=== PATIENT | female | born 1975 | race Caucasian/White ===

== ENCOUNTER 2016-09-01 15:02 | Observation (INO) | payer OTHER ==
[~2016-09-01] VITALS: Ht 157.5 cm; Wt 101.0 kg
[~2016-09-01 15:02] MED LIST: ADVIL200 M1 PO; BENTYL20 MG PO; Celexa PO; DIAZEPAM5 MG PO; MOBIC15 MG PO; NAPROSYN500 MG PO; NORCO 5/3251 TABLET PO; PREDNISONE20 MG PO; ULTRAM50 MG PO; VALIUM5 MG PO
[2016-09-01 15:46] LABS: HEMATOCRIT 40.4 % (36.0-46.0); MCH 29.4 PG (29.0-34.0); MCHC 33.2 G/DL (30.0-36.0); MCV 88.6 FL (83-99); MEAN PLAT.VOLUME 9.5 uM^3 (9.5-12.4); PLATELET COUNT 365 K/uL (156-360); RBC DIS.WIDTH-CV 13.2 % (11.8-14.6); RBC DIS.WIDTH-SD 41.6 % (39-53); RED BLOOD COUNT 4.56 M/uL (3.80-5.20); WHITE BLOOD COUNT 10.3 K/uL (4.1-10.2)
[2016-09-01 15:54] LABS: CHLORIDE 106 mEq/L (99-109); POTASSIUM 4.8 mEq/L (3.7-5.4); SODIUM 138 mEq/L (136-147)
[2016-09-01 15:56] LABS: GLUCOSE 88 mg/dL (70-99)
[2016-09-01 15:57] LABS: ANION GAP 9 MEQ/L (2-14)
[2016-09-01 16:00] LABS: GFR ESTIMATE (CALCULATED) > 59 mL/min/
[2016-09-01 16:01] LABS: UREA NITROGEN (BUN) 18 mg/dL (9-23)
[2016-09-01 16:18] LABS: TROP-I INTERPRETATION NEGATIVE; TROPONIN-I < 0.01 ng/mL (0.0-0.30)
[2016-09-01 17:05] LABS: EOSINOPHIL (%) 1.1 % (0-5); EOSINOPHIL COUNT 0.1 K/uL (0-0.3); IMMATURE GRANULOCYTE (%) 0.2 % (0.0-0.7); IMMATURE GRANULOCYTE COUNT 0.2 K/uL; LYMPHOCYTE COUNT 2.6 K/uL (1.0-2.8); MONOCYTE (%) 7.4 % (3-12); MONOCYTE COUNT 0.8 K/uL (0-0.8); NEUTROPHIL (%) 66.2 % (45-76); NEUTROPHIL COUNT 6.9 K/uL (1.8-6.4)
[2016-09-01 17:10] LABS: D-DIMER ELISA 0.36 mg/L FEU (< 0.57)
[2016-09-01 17:28] LABS: TOTAL BILIRUBIN 0.3 mg/dL (0.0-1.0)
[2016-09-01 17:29] LABS: ALKALINE PHOSPHATASE 91 IU/L (3-129)
[2016-09-01 17:31] LABS: DIRECT BILIRUBIN 0.1 mg/dL (0.0-0.3)
[2016-09-01 17:32] LABS: LIPASE 35 U/L (1.0-51.0)
[2016-09-01] MEDS ORDERED: CYMBALTA30 MG PO (19:09)
[2016-09-01] MEDS ORDERED: VOLTAREN50 MG PO (19:10)
[2016-09-01] MEDS ORDERED: ACID REDUCER PO (19:10)
[2016-09-01] MEDS ORDERED: VOLTAREN 1% GE100 GM TP (19:16)
[2016-09-01 22:29] LABS: TROP-I INTERPRETATION NEGATIVE; TROPONIN-I < 0.01 ng/mL (0.0-0.30)
[2016-09-01 23:06] VITALS: BP 140/75
[2016-09-02 04:19] VITALS: BP 116/63
[2016-09-02 04:39] LABS: TROP-I INTERPRETATION NEGATIVE; TROPONIN-I < 0.01 ng/mL (0.0-0.30)
[2016-09-02 07:14] LABS: MCH 29.3 PG (29.0-34.0); MCHC 32.1 G/DL (30.0-36.0); MCV 91.3 FL (83-99); MEAN PLAT.VOLUME 10.6 uM^3 (9.5-12.4); PLATELET COUNT 338 K/uL (156-360); RBC DIS.WIDTH-CV 13.4 % (11.8-14.6); RBC DIS.WIDTH-SD 44.5 % (39-53); RED BLOOD COUNT 4.16 M/uL (3.80-5.20); WHITE BLOOD COUNT 7.4 K/uL (4.1-10.2)
[2016-09-02 07:39] LABS: CHLORIDE 110 mEq/L (99-109); POTASSIUM 3.9 mEq/L (3.7-5.4); SODIUM 138 mEq/L (136-147)
[2016-09-02 07:41] LABS: GLUCOSE 92 mg/dL (70-99)
[2016-09-02 07:42] LABS: ANION GAP 8 MEQ/L (2-14)
[2016-09-02 07:45] LABS: ALKALINE PHOSPHATASE 81 IU/L (3-129); GFR ESTIMATE (CALCULATED) > 59 mL/min/
[2016-09-02 07:46] LABS: UREA NITROGEN (BUN) 16 mg/dL (9-23)
[2016-09-02 07:53] LABS: TOTAL BILIRUBIN 0.4 mg/dL (0.0-1.0)
[2016-09-02 08:35] VITALS: BP 115/64
[2016-09-02] MEDS ORDERED: PROTONIX20 MG PO (10:54)
[2016-09-02 13:06] VITALS: BP 106/59
== END 2016-09-02 12:30 | disposition home or self-care (01) ==
LOC: EME 15:02 → 5WEST 19:58 → EDOF 19:58 → 5WEST 22:57
PROVIDERS: Internal Medicine
DX: R10.13 Epigastric pain (principal); K21.9 Gastro-esophageal reflux disease without esophagitis; R07.9 Chest pain, unspecified; R11.0 Nausea; R42 Dizziness and giddiness; R06.09 Other forms of dyspnea; F32.9 Major depressive disorder, single episode, unspecified; J45.909 Unspecified asthma, uncomplicated; G43.909 Migraine, unspecified, not intractable, without status migrainosus; Z91.018 Allergy to other foods; Z88.1 Allergy status to other antibiotic agents; Z88.7 Allergy status to serum and vaccine; Z91.040 Latex allergy status
CPT/HCPCS: 71020; 76705; 80048; 80053; 80076; 83690; 84484; 85025; 85027; 85379; 93005; 99281; 99285; G0378; J1170; J1644; J2270; J2405; J7030; S0028

== ENCOUNTER 2016-12-22 16:50 | Emergency (ER) | payer OTHER ==
[~2016-12-22] VITALS: Ht 157.5 cm; Wt 97.6 kg
[~2016-12-22 16:50] MED LIST changes: +ACID REDUCER PO; +CYMBALTA30 MG PO; +PROTONIX20 MG PO; +VOLTAREN 1% GE100 GM TP; +VOLTAREN50 MG PO
[2016-12-22] MEDS ORDERED: ULTRACET1 TABLET PO (19:42)
[2016-12-22] MEDS ORDERED: VALIUM2 MG PO (19:42)
[2016-12-22] MEDS ORDERED: MOTRIN600 MG PO (19:42)
[2016-12-22 20:04] VITALS: BP 119/74
== END 2016-12-22 20:10 | disposition home or self-care (01) ==
LOC: EME 16:50
DX: S06.0X0A Concussion without loss of consciousness, initial encounter (principal); S13.4XXA Sprain of ligaments of cervical spine, initial encounter; S69.91XA Unspecified injury of right wrist, hand and finger(s), initial encounter; S80.01XA Contusion of right knee, initial encounter; W01.198A Fall on same level from slipping, tripping and stumbling with subsequent striking against other object, initial encounter; J45.909 Unspecified asthma, uncomplicated; Z91.040 Latex allergy status; Z88.1 Allergy status to other antibiotic agents; Z88.8 Allergy status to other drugs, medicaments and biological substances; Z91.018 Allergy to other foods; Z88.7 Allergy status to serum and vaccine
CPT/HCPCS: 72040; 73110; 73564; 99281; 99284

== ENCOUNTER 2017-08-01 12:43 | Emergency (ER) | payer OTHER ==
[~2017-08-01] VITALS: Ht 157.5 cm; Wt 98.2 kg
[~2017-08-01 12:43] MED LIST changes: +MOTRIN600 MG PO; +ULTRACET1 TABLET PO; +VALIUM2 MG PO
[2017-08-01 13:46] LABS: HEMATOCRIT 41.9 % (36.0-46.0); MCH 30.5 PG (29.0-34.0); MCHC 32.5 G/DL (30.0-36.0); MCV 93.9 FL (83-99); MEAN PLAT.VOLUME 9.8 uM^3 (9.5-12.4); PLATELET COUNT 395 K/uL (156-360); RBC DIS.WIDTH-CV 13.8 % (11.8-14.6); RBC DIS.WIDTH-SD 47.5 % (39-53); RED BLOOD COUNT 4.46 M/uL (3.80-5.20); WHITE BLOOD COUNT 11.3 K/uL (4.1-10.2)
[2017-08-01 13:54] LABS: D-DIMER ELISA < 150.00 ng/mLDDU (<230)
[2017-08-01 13:57] LABS: CHLORIDE 109 mEq/L (99-109); SODIUM 142 mEq/L (136-147)
[2017-08-01 13:59] LABS: GLUCOSE 73 mg/dL (70-99)
[2017-08-01 14:00] LABS: ANION GAP 9 MEQ/L (2-14)
[2017-08-01 14:03] LABS: GFR ESTIMATE (CALCULATED) > 59 mL/min/
[2017-08-01 14:04] LABS: UREA NITROGEN (BUN) 10 mg/dL (9-23)
[2017-08-01 15:58] LABS: TROP-I INTERPRETATION NEGATIVE; TROPONIN-I < 0.01 ng/mL (0.0-0.30)
[2017-08-01 16:30] VITALS: BP 114/80
== END 2017-08-01 16:30 | disposition home or self-care (01) ==
LOC: EME 12:43
PROVIDERS: Emergency Medicine
DX: R07.89 Other chest pain (principal); E87.6 Hypokalemia; K21.9 Gastro-esophageal reflux disease without esophagitis; J45.909 Unspecified asthma, uncomplicated; Z91.040 Latex allergy status; Z88.1 Allergy status to other antibiotic agents; Z88.8 Allergy status to other drugs, medicaments and biological substances
CPT/HCPCS: 80048; 84484; 85027; 85379; 93005; 94640; 99281; 99285; J1200; J2930; J7030; S0028

== ENCOUNTER 2017-10-16 17:09 | Emergency (ER) | payer OTHER ==
[~2017-10-16] VITALS: Ht 157.5 cm; Wt 94.2 kg
[2017-10-16 17:59] LABS: HEMATOCRIT 42.2 % (36.0-46.0); MCH 30.3 PG (29.0-34.0); MCHC 33.2 G/DL (30.0-36.0); MCV 91.3 FL (83-99); PLATELET COUNT 355 K/uL (156-360); RBC DIS.WIDTH-CV 13.2 % (11.8-14.6); RBC DIS.WIDTH-SD 44.8 % (39-53); RED BLOOD COUNT 4.62 M/uL (3.80-5.20); WHITE BLOOD COUNT 8.6 K/uL (4.1-10.2)
[2017-10-16 18:18] LABS: CHLORIDE 107 mEq/L (99-109); POTASSIUM 4.1 mEq/L (3.7-5.4); SODIUM 137 mEq/L (136-147)
[2017-10-16 18:20] LABS: GLUCOSE 87 mg/dL (70-99); TOTAL PROTEIN 7.1 g/dL (6.4-8.3)
[2017-10-16 18:22] LABS: TOTAL BILIRUBIN 0.5 mg/dL (0.0-1.0)
[2017-10-16 18:24] LABS: ALKALINE PHOSPHATASE 99 IU/L (3-129); CREATININE 0.8 mg/dL (0.6-1.3); GFR ESTIMATE (CALCULATED) > 59 mL/min/
[2017-10-16 18:25] LABS: UREA NITROGEN (BUN) 12 mg/dL (9-23)
[2017-10-16 18:26] LABS: AST (GOT) 14 IU/L (2-34)
[2017-10-16 18:27] LABS: ALT (GPT) 13 IU/L (3-49); LIPASE 23 U/L (1.0-51.0)
[2017-10-16 18:29] LABS: TROP-I INTERPRETATION NEGATIVE; TROPONIN-I < 0.01 ng/mL (0.0-0.30)
[2017-10-16 20:44] LABS: TROP-I INTERPRETATION NEGATIVE; TROPONIN-I < 0.01 ng/mL (0.0-0.30)
[2017-10-16] MEDS ORDERED: PROTONIX40 MG PO (22:24)
[2017-10-17] VITALS: BP 102/67
== END 2017-10-17 00:01 | disposition home or self-care (01) ==
LOC: EME 17:09
PROVIDERS: Emergency Medicine
DX: R10.13 Epigastric pain (principal); J45.909 Unspecified asthma, uncomplicated; K21.9 Gastro-esophageal reflux disease without esophagitis; F32.9 Major depressive disorder, single episode, unspecified; F41.9 Anxiety disorder, unspecified; Z91.040 Latex allergy status
CPT/HCPCS: 71045; 76705; 80053; 83690; 84484; 85027; 93005; 99281; 99285; J1885; J2765

== ENCOUNTER → 2017-11-14 | Outpatient (CLI) | payer OTHER ==
[~2017-11-14] MED LIST changes: +PROTONIX40 MG PO
== END | disposition home or self-care (01) ==
LOC: NUC 06:35
DX: R93.2 Abnormal findings on diagnostic imaging of liver and biliary tract (principal); R10.11 Right upper quadrant pain
CPT/HCPCS: 78226; A9537; J2805

== ENCOUNTER 2018-02-14 13:17 | Emergency (ER) | payer OTHER ==
[~2018-02-14] VITALS: Ht 157.5 cm; Wt 92.5 kg
[2018-02-14] MEDS ORDERED: BENADRYL50 MG PO (19:10)
[2018-02-14] MEDS ORDERED: PEPCID20 MG PO (19:10)
[2018-02-14] MEDS ORDERED: PREDNISONE20 MG PO (19:10)
[2018-02-14 19:15] VITALS: BP 130/74
== END 2018-02-14 19:15 | disposition home or self-care (01) ==
LOC: EME 13:17 → RME 13:17
DX: T78.40XA Allergy, unspecified, initial encounter (principal); Z91.018 Allergy to other foods; J45.909 Unspecified asthma, uncomplicated; K21.9 Gastro-esophageal reflux disease without esophagitis; Z91.040 Latex allergy status; Z88.1 Allergy status to other antibiotic agents
CPT/HCPCS: 99281; 99285; J1200; J2930; S0028